=== PATIENT | male | born 1945 | race Caucasian/White ===

== ENCOUNTER 2021-06-23 13:33 | Emergency (ER) | payer MEDICARE, OTHER ==
[2021-06-23 14:05] VITALS: TEMP 99.3
[2021-06-23] MEDS ORDERED: BAMLANIVIMAB (EUA) 700 MG, ETESEVIMAB (EUA) 1,400 MG in SODIUM CHLORIDE 0.9% 100 ML IVPB ONE (18:00)
[2021-06-23] MEDS ORDERED: SODIUM CHLORIDE 0.9% 50 ML IVPB ONE (18:30)
--- NOTE | 2021-06-23 19:58 | ED ---
General Adult HPI - General Chief complaint: Upper Respiratory Infection Stated complaint: covid+, increased SOB Time Seen by Provider: 06/23/21 16:53 Source: family, RN notes reviewed, old records reviewed Mode of arrival: wheelchair - History of Present Illness Initial comments: Patient is a 75-year-old male who is deaf with a history of A. fib on anticoagulation, thyroid disorder presents with his daughter who is the primary roll cleaner. Patient can read lips. Patient can speak. He has been complaining of mild upper respiratory symptoms since 2 days ago. Had a positive COVID-19 test yesterday which she has with him. This seeking monoclonal antibody therapy at this time. Denies chest pain, shortness breath, abdominal pain, nausea. Endorses occasional diarrhea. Denies any lightheadedness or weakness. His no other acute complaints at this time. He does endorse some mild body aches. He presents seeking monoclonal antibody therapy. Patient was vaccinated for COVID- 19. I evaluated the patient when he was placed in a room. - Related Data Previous Rx's Medication Instructions Recorded Albuterol Inhaler [Ventolin Hfa 1 puff INHALATION RT-QID #8 gm 06/23/21 Inhaler] Allergies Allergy/AdvReac Type Severity Reaction Status Date / Time No Known Allergies Allergy Verified 06/23/21 14:00 Review of Systems ROS Statement: Those systems with pertinent positive or pertinent negative responses have been documented in the HPI. Review of Systems: CONST: Denies fever EYES: Denies blurry vision ENT: Endorses nasal congestion C/V: Denies Chest pain RESP: Denies shortness of breath GI: Denies abdominal pain : Denies dysuria SKIN: Denies rash. MSK: Denies joint pain. NEURO: Denies headache ROS Other: All systems not noted in ROS Statement are negative. Past Medical History Past Medical History: Atrial Fibrillation, Thyroid Disorder History of Any Multi-Drug Resistant Organisms: None Reported Past Surgical History: Orthopedic Surgery Past Psychological History: No Psychological Hx Reported Smoking Status: Never smoker Past Alcohol Use History: None Reported Past Drug Use History: None Reported General Exam - General Exam Comments Initial Comments: General: Appears in no acute distress. HEAD: Normal with no signs of head trauma. EYES: EOMI. ENT: Patient is deaf. RESPIRATORY: No respiratory distress. Not hypoxic. C/V: S1 and S2 auscultated. Regular rate. ABD: Abdomen is nondistended. EXT: No obvious deformity. SKIN: No rashes or lesions observed on exposed skin. NEURO: Alert and oriented. Course Vital Signs 06/23/21 06/23/21 14:00 20:09 Temperature 99.3 F Pulse Rate 72 77 Respiratory 20 16 Rate Blood Pressure 126/76 144/77 O2 Sat by Pulse 96 98 Oximetry Medical Decision Making - Medical Decision Making Based on the patient's presentation and physical exam, he is COVID-19 positiveness economical antibiotic therapy. He is in no respiratory distress and has no hypoxia. I do not believe that further laboratory studies or imaging are required at this time his vital signs are within normal limits. He does meet criteria for monoclonal antibody therapy. He consented to therapy. Patient tolerated therapy well. He will be discharged home now.I did discuss quarantine with the patient, as well as use of [id number] vitamin C and zinc. use albuterol inhalers as needed. Recommended obtain a pulse ox to monitor oxygen saturation saturations. Return to the emergency department if worsening symptoms. Patient was in agreement this plan. I will provide the patient with a prescription for albuterol inhaler. I instructed the patient to follow up with their PCP in the next 3 days. I explained that the patient should return to the emergency department if they experience any worsening symptoms. Strict return precautions were discussed with the patient. The patient expressed understanding of these instructions. I answered all questions that the patient had. The patient was discharged home in good condition with their prescriptions and follow up information. Disposition Clinical Impression: COVID-19 virus infection, Deaf Disposition: HOME SELF-CARE Condition: Good Instructions (If sedation given, give patient instructions): Coronavirus Disease 2019 (COVID-19) Prescriptions: Albuterol Inhaler [Ventolin Hfa Inhaler] 1 puff INHALATION RT-QID #8 gm Is patient prescribed a controlled substance at d/c from ED?: No Referrals: Nonstaff,Physician [Primary Care Provider] - 1-2 days Jesús Yanez MD [STAFF PHYSICIAN] - 1-2 days
[2021-06-23 20:10] VITALS: BP 144/77; PULSE 77; RESP 16
== END 2021-06-23 20:17 | disposition home or self-care (01) ==
LOC: EC 13:33
DX: U07.1 COVID-19 (principal); H91.90 Unspecified hearing loss, unspecified ear; I48.91 Unspecified atrial fibrillation
CPT/HCPCS: 99283; J3490